=== PATIENT | female | born 1935 | race Caucasian/White ===

== ENCOUNTER → 2020-05-26 11:46 | Outpatient (CLI) | payer MEDICARE, OTHER ==
[2020-05-26 12:32] LABS: BASOPHILS 0.4 % (0-2); EOSINOPHILS 1.1 % (0-7); HEMATOCRIT 35.8 % (36.0-48.0); HEMOGLOBIN 11.5 g/dL (12-16); IMMATURE GRANULOCYTES 0.2 % (0-5); LYMPHOCYTE ABS# 1.04 10x3/uL (1.18-3.74); LYMPHOCYTES 19.5 % (15-50); MCHC 32.1 g/dL (31.0-37.0); MCV 87.1 fL (80.0-100.0); MEAN PLATELET VOLUME 10.3 fL (7.4-10.4); MONOCYTES 8.1 % (2-11); NEUTROPHIL ABS# 3.77 10x3/uL (1.56-6.13); NEUTROPHILS 70.7 % (40-80); PLATELET COUNT 255 10x3/uL (130-400); RBC 4.11 10x6/uL (4.00-5.40); RDW 15.4 % (11.5-14.5); WBC 5.3 10x3/uL (4.8-10.8)
[2020-05-26 12:41] LABS: ALBUMIN 3.6 g/dL (3.4-5.0); ANION GAP 13.8 mmol/L (8-16); BILIRUBIN - TOTAL 0.71 mg/dL (0.2-1.3); CARBON DIOXIDE 23.4 mmol/L (21.0-32.0); CHOL - HDL RATIO 1.7 ratio (2.3-4.1); CREATININE - SERUM 0.9 mg/dL (0.6-1.3); LDL-HDL RATIO 0.5 ratio (1.5-3.5); POTASSIUM - SERUM 4.2 mmol/L (3.5-5.1); THYROID STIMULATING HORMONE 2.37 uIU/mL (0.36-3.74)
== END | disposition home or self-care (01) ==
LOC: D.LAB 11:46
PROVIDERS: ATTEND Family Medicine
DX: Z00.00 Encounter for general adult medical examination without abnormal findings (principal); M19.90 Unspecified osteoarthritis, unspecified site; Z91.81 History of falling; I10 Essential (primary) hypertension; R32 Unspecified urinary incontinence